=== PATIENT | male | born 1940 | race Hispanic/Latino ===

== ENCOUNTER 2025-03-24 11:47 | Emergency (ER) | payer OTHER, MEDICAID ==
[~2025-03-24] VITALS: Ht 172.7 cm; Wt 85.7 kg
[2025-03-24 12:31] LABS: IMMATURE GRANULOCYTE ABSOLUTE 0.05 K/uL (0-1); NUCLEATED RED BLOOD CELLS 0.0 % (0.0-0.19); PLATELET COUNT (AUTO) 296 K/uL (130-400); RED BLOOD CELL COUNT(AUTO) 3.75 MIL/uL (4.50-6.20); RED CELL DISTRIBUTION WIDTH 13.1 % (11.0-15.5); WHITE BLOOD COUNT (AUTO) 9.8 K/uL (4.8-10.8)
[2025-03-24 12:39] LABS: CREATININE 1.1 mg/dL (0.5-1.3); GLOMERULAR FILTR. RATE CALC 66.0 mL/min (>90); GLUCOSE,RANDOM 110.0 mg/dL (70-105); SODIUM SERUM 131.0 mmol/L (136-145); UREA NITROGEN, BLOOD 26.0 mg/dL (7-18)
[2025-03-24 12:41] LABS: INR 0.98 (0.85-1.15)
[2025-03-24 12:44] LABS: CREATINE KINASE, TOTAL 71.0 U/L (21-232)
--- NOTE | 2025-03-24 12:58 | HMCIMG ---
EXAM: CR Chest, 1 View. CLINICAL HISTORY: cp COMPARISON: None provided. FINDINGS: LUNGS: The lungs show no infiltrate or other acute finding. PLEURAL SPACES: No pleural effusion or pneumothorax. MEDIASTINUM: Cardiac size and mediastinal contours within normal limits. BONES: No aggressive appearing osseous lesion seen. IMPRESSION: No acute cardiopulmonary pathology is evident. /[place]
--- NOTE | 2025-03-24 14:22 | ERN ---
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 NORMAL Time Seen by MD: 11:51 Source: patient History of Present Illness Initial Comments Patient is a an 84-year-old male coming in complaining momentarily confusion state. Per family members patient was confused for about 3 minutes recovered shortly after that has been alert and oriented since. Allergies: Coded Allergies: No Known Drug Allergies (Unverified Allergy, Unknown, 03/24/25) Home Meds Reported Medications Lisinopril/Hydrochlorothiazide (Lisinopril-Hctz 20-12.5 mg Tab) 20 Mg-12.5 Mg Tablet, 1 TAB PO DAILY for 30 Days, #30 TAB 0 Refills 03/24/25 Amlodipine Besylate (Amlodipine Besylate) 10 Mg Tablet, 1 TAB PO DAILY for 30 Days, #30 TAB 0 Refills 03/24/25 Metoprolol Succinate (Metoprolol Succinate) 100 Mg Tab.er.24h, 1 TAB PO DAILY for 30 Days, #30 TAB 0 Refills 03/24/25 Past Medical History Past Medical History: Hypertension Past Surgical History: None ROS Dictation CONSTITUTIONAL: No chills, no fever, no weakness, no diaphoresis, no malaise. HEAD/FACE: No signs of trauma. EENT: No eye pain, no blurred vision, no tearing, no double vision, no ear pain, no ear discharge, no nose pain, no nasal congestion, no throat pain, no throat swelling, no mouth pain. RESPIRATORY: No cough, no orthopnea, no SOB, no stridor, no wheezing. CARDIOVASCULAR: No chest pain, no edema, no palpitations, no syncope. GASTROINTESTINAL/ABDOMINAL: No abdominal pain, no constipation, no diarrhea, no nausea, no vomiting. GENITOURINARY: No abnormal discharge, no dysuria, no frequent urination, no hematuria. No complaints of pain in the genitals. MUSCULOSKELETAL: No back pain, no gout, no joint pain, no joint swelling, no muscle pain, no muscle stiffness, no neck pain. INTEGUMENTARY: No change in color, no change in hair/nails, no dryness, no lesion, no lumps, no rash. NEUROLOGICAL/PSYCH: No anxiety, not depressed, no emotional problem, no headache, no numbness, no pre-existing deficit, no history of seizures, no tremors, no weakness. HEMATOLOGIC/LYMPHATIC: Not anemic, no history of blood clots, no apparent bleeding, no bruising, glands not swollen. All Systems Negative, Except as Noted. Physical Exam Physical Exam Dictation VITAL SIGNS: Reviewed. GENERAL APPEARANCE: Alert, oriented x3, no acute distress, obese. HEAD AND FACE: Non-traumatic. EYES: PERRL, pink conjunctivas, eyelid no trauma, anterior chamber clear. EARS: Pinnas intact and no signs of trauma or erythema. Ear canals clear and no discharge. TMs no erythema. NOSE: No discharge, no bleeding. OROPHARYNX: Mouth normal, teeth no caries, tongue pink. Pharynx clear, no erythema. Tonsils no exudates, no abscesses noted. Mucous membrane moist. NECK: Supple, non-tender, no thyromegaly, no masses, no JVD, no bruits. BREAST: Deferred. CHEST: No tenderness, no crepitus, no paradoxical movement, no retractions. LUNGS: Clear, well-ventilated, symmetric, no rales, no wheezing, no rhonchi, no stridor, good breath sounds bilaterally. HEART: Regular rate, regular rhythm, no murmur, no gallops. VASCULAR: No peripheral edema. ABDOMEN: Soft, positive bowel sounds, nondistended, no guarding, nontender, no rebound, no masses no hepatomegaly, no splenomegaly, no Lomeli's sign, no hernias. RECTAL: Deferred. GENITAL: Deferred. NEUROLOGICAL: Normal speech, gross motor function intact, gross sensory function intact. MUSCULOSKELETAL: Neck nontender, full range of motion, back nontender, full range of motion. EXTREMITIES: Nontender, full range of motion. SKIN: Color pink, dry, no turgor, no rash, no lacerations, no abrasions, no contusions. LYMPHATICS: Deferred. Results Laboratory and Microbiology Lab and Micro Result Laboratory Tests Test 03/24/25 12:17 03/24/25 13:47 White Blood Count 9.8 K/uL (4.8-10.8) Red Blood Count 3.75 MIL/uL (4.50-6.20) L Hemoglobin 12.7 g/dL (14.0-18.0) L Hematocrit 36.3 % (42-54) L Mean Corpuscular Volume 96.8 fL (79-99) Mean Corpuscular Hemoglobin 33.9 pg (27.0-33.0) H Mean Corpuscular Hemoglobin Concent 35.0 g/dL (32.0-36.0) Red Cell Distribution Width 13.1 % (11.0-15.5) Platelet Count 296 K/uL (130-400) Mean Platelet Volume 9.7 fL (7.5-10.5) Immature Granulocyte % (Auto) 0.5 % (0-1) Neutrophils (%) (Auto) 73.5 % (40.0-77.0) Lymphocytes (%) (Auto) 14.3 % (21.0-51.0) L Monocytes (%) (Auto) 7.9 % (3.0-13.0) Eosinophils (%) (Auto) 3.1 % (0.0-8.0) Basophils (%) (Auto) 0.7 % (0.0-5.0) Neutrophils # (Auto) 7.2 K/uL (1.8-7.7) Lymphocytes # (Auto) 1.4 K/uL (1.0-4.8) Monocytes # (Auto) 0.8 K/uL (0.1-1.0) Eosinophils # (Auto) 0.30 K/uL (0.00-0.70) Basophils # (Auto) 0.07 K/uL (0.00-0.20) Absolute Immature Granulocyte (auto 0.05 K/uL (0-1) Nucleated Red Blood Cells 0.0 % (0.0-0.19) Prothrombin Time 10.4 SEC (9.6-11.6) Prothromb Time International Ratio 0.98 (0.85-1.15) Activated Partial Thromboplast Time 27.3 SEC (26.3-35.5) Sodium Level 131 mmol/L (136-145) L Potassium Level 3.6 mmol/L (3.5-5.1) Chloride Level 95 mmol/L (101-111) L Carbon Dioxide Level 29 mmol/L (21-32) Blood Urea Nitrogen 26 mg/dL (7-18) H Creatinine 1.1 mg/dL (0.5-1.3) Glomerular Filtration Rate Calc 66 mL/min (>90) Random Glucose 110 mg/dL (70-105) H Total Calcium 8.9 mg/dL (8.5-10.1) Magnesium Level 2.10 mg/dL (1.80-2.40) Total Creatine Kinase 71 U/L (21-232) Troponin I High Sensitivity 12 ng/L (4-75) Urine Color YELLOW (YELLOW) Urine Appearance CLEAR (CLEAR) Urine pH 7.0 (5.0-8.0) Urine Specific Pool 1.014 (1.001-1.031) Urine Protein NEGATIVE mg/dL (NEGATIVE) Urine Glucose (UA) NEGATIVE mg/dL (NEGATIVE) Urine Ketones NEGATIVE mg/dL (NEGATIVE) Urine Occult Blood NEGATIVE (NEGATIVE) Urine Nitrate NEGATIVE (NEGATIVE) Urine Bilirubin NEGATIVE mg/dL (NEGATIVE) Urine Urobilinogen 0.2 mg/dL (0.2-1.0) Urine Leukocyte Esterase NEGATIVE Ray/uL Labs Reviewed?: Yes EKG/XRAY/US/CT/MRI EKG Comment 03/24/2025 time 12:43 p.m. Ventricular rate 62 Sinus rhythm [place] [address] wave elevation or depression X-RAY Comment IMAGING REPORT Signed PATIENT: WILDER SOSA MR#: [id number] : 1940 SEX: M AGE: 84 LOCATION: [facility] ORDER 57 STATUS: [facility] REPORT#: [id number] SERVICE 56 REASON: ORDERING PHYSICIAN: CHRISTINA HEBERT MD PROCEDURE: CXR1VW - CHEST 1VW EXAM: CR Chest, 1 View. CLINICAL HISTORY: COMPARISON: None provided. FINDINGS: LUNGS: The lungs show no infiltrate or other acute finding. PLEURAL SPACES: No pleural effusion or pneumothorax. MEDIASTINUM: Cardiac size and mediastinal contours within normal limits. BONES: No aggressive appearing osseous lesion seen. IMPRESSION: No acute cardiopulmonary pathology is evident. /[place] DICTATED BY: JAMIE AGUIAR Jr., MD DATE: 03/24/25 4080 ELECTRONICALLY SIGNED BY: JAMIE AGUIAR Jr., MD DATE: 03/24/[address] Scan Comment [address] [place] [id number] IMAGING REPORT Signed PATIENT: WILDER SOSA MR#: [id number] : 1940 SEX: M AGE: 84 LOCATION: [facility] ORDER 57 STATUS: [facility] REPORT#: [id number] SERVICE 56 REASON: ams ORDERING PHYSICIAN: CHRISTINA HEBERT MD PROCEDURE: HEAD WO - CT HEAD/BRAIN W/O CONTRAST EXAM: CT Head Without IV contrast. CLINICAL HISTORY: ams TECHNIQUE: Axial computed tomography images of the head/brain without intravenous contrast. COMPARISON: None provided. FINDINGS: BRAIN: No evidence of acute hemorrhage. No mass lesion. No CT evidence for acute territorial infarct. No midline shift or extra-axial collections. VENTRICLES: No hydrocephalus. ORBITS: The orbits are unremarkable. SINUSES AND MASTOIDS: The paranasal sinuses and mastoid air cells are clear. BONES: No fracture. SOFT TISSUES: Unremarkable. IMPRESSION: No acute intracranial abnormality. /[place] DICTATED BY: JAMIE AGUIAR Jr., MD DATE: 03/24/251520 ELECTRONICALLY SIGNED BY: JAMIE AGUIAR Jr., MD DATE: 03/24/25 152 [facility] MDM: Differential diagnosis: momentarily confusion episodic confusion , TIA, CVA, Rationale: Tests considered and ordered secondary to shared decision making include: Previous outside records reviewed: Old ER visits. Risk of complication and/or morbidity or mortality of patient management: None Medications-Per medication reconciliation Need for hospitalization: Patient does not meet criteria for hospitalization. Need for emergency major/minor surgery: No There are no social concerns with this patient. Patient is a an 84-year-old coming in after the momentary confusion state. Throughout ER visit patient has been stable CT of the head did not disclose acute findings. Teleneurologist recommendations per patient is a follow up as outpatient with a neurologist or with PCP. Throughout ER visit patient has been stable and has been at baseline per family members. Patient will be discharged in stable condition patient has been instructed to follow up accordingly he states he will be ED Course Orders Procedure Category Date Status Time Cbc With Differential LAB 03/24/25 Complete 11:57 Prothrombin Time With LAB 03/24/25 Complete INR 11:57 Chest 1vw RAD 03/24/25 Resulted 11:57 12 Lead Ekg Tracing- EKG 03/24/25 Complete Technical 11:57 Magnesium LAB 03/24/25 Complete 11:57 Creatine Kinase, Total LAB 03/24/25 Complete 11:57 Troponin I High LAB 03/24/25 Complete Sensitivity 11:57 Urinalysis Profile LAB 03/24/25 Complete 11:57 Partial LAB 03/24/25 Complete Thromboplastin Time 11:57 Basic Metabolic Panel LAB 03/24/25 Complete 11:57 Ct Head/Brain W/O CT 03/24/25 Resulted Contrast 11:57 Vital Signs Date Time Temp Pulse Resp B/P (MAP) Pulse Ox O2 Delivery O2 Flow Rate FiO2 03/24/25 15:30 96.6 64 18 161/68 97 Room Air* 0 21 03/24/25 13:01 59 18 159/61 97 Room Air* 0 21 03/24/25 11:50 98.6 56 16 131/62 100 Room Air 0 DX & DISP Disposition: Discharge Departure Impression: Primary Impression: Episodic confusion Condition: Stable Additional Instructions: FOLLOW-UP WITH PRIMARY CARE PROVIDER IN 1 TO 2 DAYS. TAKE MEDICATIONS DIRECTED HERE IN THE EMERGENCY ROOM. OKAY TO CONTINUE HOME MEDICATIONS UNLESS OTHERWISE DISCUSSED DURING YOUR VISIT IN THE EMERGENCY ROOM TODAY. RETURN TO YOUR NEAREST EMERGENCY ROOM IF SYMPTOMS WORSEN OR IF THERE IS NO IMPROVEMENT. CALL 911 IF YOU NEED IMMEDIATE ASSISTANCE. TAKE TYLENOL [id number] NEEDED AND IF NO CONTRAINDICATIONS ARE PRESENT. INCREASE ORAL HYDRATION. A WOUND CULTURE OR URINE CULTURE WAS ORDERED HERE IN THE EMERGENCY ROOM DEPARTMENT PLEASE FOLLOW-UP WITH PRIMARY CARE PROVIDER AND ADVISE THEM TO GET REPORTS FROM OUR FACILITY. IF YOU HAD ANY MARLENE WRAP/SPLINTS THAT WERE APPLIED HERE, PLEASE DO NOT REMOVE THEM UNTIL YOU SEE YOUR PRIMARY CARE OR SPECIALTY. Referrals: Referrals: SUSAN GAY MD (PCP) Time of Disposition: 16:22 CHRISTINA HEBERT MD Mar 24, 2025 14:21
[2025-03-24 14:53] LABS: APPEARANCE,URINE CLEAR (CLEAR); GLUCOSE, URINE (UA) NEGATIVE (NEGATIVE); LEUKOCYTE ESTERASE ,URINE NEGATIVE Leu/uL (NEGATIVE); NITRATE,URINE NEGATIVE (NEGATIVE); OCCULT BLOOD,URINE NEGATIVE (NEGATIVE)
[2025-03-24 14:56] LABS: ADD UA MICROSCOPIC NO
--- NOTE | 2025-03-24 15:21 | EKG ---
Test Date: 2025-03-24 Test Time: 12:43:37 Pat Name: WILDER SOSA Department: ED Room: Gender: [employer]or: [facility] : 1940 Requested By: CHRISTINA HEBERT Order Number: [id number] [place] MD: Christi Flores Measurements Intervals [place] Rate: 62 P: 28 CT: 169 QRS: -13 QRSD: 82 T: 39 QT: 437 QTc: 443 Interpretive Statements Sinus rhythm No previous ECG available for comparison Electronically Signed On 03-24-2025 20:30:54 [employer] by Christi Flores Please click the below link to view image of tracing.
[2025-03-24] MEDS ORDERED: LISI1TAB51 PO (15:36)
[2025-03-24] MEDS ORDERED: METO-409 PO (15:36)
[2025-03-24] MEDS ORDERED: AMLO-258 PO (15:36)
--- NOTE | 2025-03-24 15:36 | NUR ---
MEDICATIONS RECONCILED
[2025-03-24 16:35] VITALS: BP 158/61; PULSE 63; RESP 17; TEMP 96.7; O2SAT 98
== END 2025-03-24 16:50 | disposition home or self-care (01) ==
LOC: EDH 11:47
DX: R41.0 Disorientation, unspecified (principal); I10 Essential (primary) hypertension; Z79.899 Other long term (current) drug therapy; Z79.01 Long term (current) use of anticoagulants
CPT/HCPCS: 36415; 70450; 71045; 80048; 81003; 82550; 83735; 84484; 85025; 85610; 85730; 93005; 99285

== ENCOUNTER → 2025-05-10 | Outpatient (CLI) | payer OTHER, MEDICAID ==
[~2025-05-10] MED LIST: AMLO-258 PO; LISI1TAB51 PO; METO-409 PO
--- NOTE | 2025-05-10 22:40 | HMCIMG ---
EXAM Bilateral Lower Extremity Arterial Doppler Ultrasound CLINICAL INDICATION Peripheral vascular disease. Leg pain. TECHNIQUE Lao scale, color Doppler, and spectral Doppler ultrasound evaluation of the arterial systems of both lower extremities was performed, including waveform analysis and velocity measurements. COMPARISON None available. 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 Surrounding soft tissues show no evidence of masses. There is no popliteal cyst. Visualized muscular tissue appears within normal limits. No inguinal or thigh lymph nodes are identified. IMPRESSION * Severe bilateral common femoral artery stenosis, left worse than right, with markedly elevated peak systolic velocities. * Hemodynamically significant right mid superficial femoral artery stenosis. * Distal bilateral femoropopliteal and infrapopliteal arterial disease with monophasic waveforms, consistent with advanced peripheral arterial disease. RECOMMENDATIONS In accordance with ACR Appropriateness Criteria, further evaluation with CT angiography or MR angiography of the lower extremities is recommended to define the extent and severity of arterial disease. Vascular surgery consultation is advised. Correlation with ankle-brachial index measurements and clinical findings is recommended. /[place]
== END | disposition home or self-care (01) ==
LOC: RAH 14:52
PROVIDERS: ATTEND Family Medicine
DX: I70.203 Unspecified atherosclerosis of native arteries of extremities, bilateral legs (principal); M79.604 Pain in right leg; M79.605 Pain in left leg
CPT/HCPCS: 93925